=== PATIENT | female | born 1945 | race Caucasian/White ===

== ENCOUNTER 2019-03-18 22:20 | Emergency (ER) | payer OTHER ==
[~2019-03-18] VITALS: Ht 167.6 cm; Wt 71.2 kg
[~2019-03-18 22:20] MED LIST: CRESTOR20 MG PO; INDERAL LA80 MG PO; METFORMIN HCL500 MG PO; POLY119PG PO; SURFAK240 M1 PO; ULTRACET PO
== END 2019-03-19 03:35 | disposition home or self-care (01) ==
LOC: ER 22:20
DX: E11.649 Type 2 diabetes mellitus with hypoglycemia without coma (principal); R42 Dizziness and giddiness; R51 Headache

== ENCOUNTER 2019-03-21 19:53 | Emergency (ER) | payer OTHER ==
[~2019-03-21] VITALS: Ht 167.6 cm; Wt 71.2 kg
== END 2019-03-21 21:51 | disposition home or self-care (01) ==
LOC: ER 19:53
DX: I16.1 Hypertensive emergency (principal); I10 Essential (primary) hypertension

== ENCOUNTER 2019-05-31 09:29 | Outpatient (CLI) | payer OTHER | END 2019-05-31 09:33 | disposition home or self-care (01) | LOC: SONOGRAMA 09:29 | DX: E04.2 Nontoxic multinodular goiter (principal) ==

== ENCOUNTER 2022-01-10 15:55 | Emergency (ER) | payer OTHER ==
[~2022-01-10] VITALS: Ht 167.6 cm; Wt 71.2 kg
[2022-01-10] MEDS ORDERED: LOSARTAN POTASS25 MG PO (16:08)
== END 2022-01-10 21:05 | disposition home or self-care (01) ==
LOC: ER 15:55
DX: S09.90XA Unspecified injury of head, initial encounter (principal); T07.XXXA Unspecified multiple injuries, initial encounter; W18.30XA Fall on same level, unspecified, initial encounter; Y99.9 Unspecified external cause status; Y93.9 Activity, unspecified; Y92.019 Unspecified place in single-family (private) house as the place of occurrence of the external cause

== ENCOUNTER 2024-02-03 05:34 | Day surgery (SDC) | payer OTHER ==
[2024-01-30 14:08] LABS: INR 1.05; PARTIAL THROMBOPLASTIN TIME 27.2 SECONDS (22.0-34.0)
[~2024-02-03 05:34] MED LIST changes: +LOSARTAN POTASS25 MG PO
[2024-02-03] MEDS ORDERED: CHLORHEXIDINE GLUCONATE 120 ML BOTTLE TOP ONE ×2 (12:43→13:30)
[2024-02-03] MEDS ORDERED: VANCOMYCIN HCL 1,000 MG VIAL ONE (12:49)
[2024-02-03] MEDS ORDERED: GENTAMICIN SULFATE 40 MG/ML VIAL ONE (12:49)
[2024-02-03] MEDS ORDERED: GENTAMICIN SULFATE 40 MG/ML VIAL IV ONE (13:30)
[2024-02-03] MEDS ORDERED: VANCOMYCIN HCL 1,000 MG VIAL IV ONE (13:30)
[2024-02-03] MEDS ORDERED: ENALAPRILAT DIHYDRATE 2.5 MG/2 ML VIAL IV ONE (16:53)
== END 2024-02-03 18:15 | disposition home or self-care (01) ==
LOC: CIR.AMB 05:34
PROVIDERS: ATTEND Urology
DX: C67.9 Malignant neoplasm of bladder, unspecified (principal); Z88.6 Allergy status to analgesic agent

== ENCOUNTER 2024-02-06 18:42 | Emergency (ER) | payer OTHER ==
[~2024-02-06] VITALS: Ht 172.7 cm; Wt 78.5 kg
[2024-02-06] MEDS ORDERED: ACETAMINOPHEN 500 MG GEL..CAP PO ONE (20:00)
[2024-02-06 20:15] LABS: HEMATOCRIT 35.2 % (36.0-45.00); HEMOGLOBIN 11.9 g/dL (12.0-15.00); MEAN CORPUSCULAR HEMOGLOBIN 30.7 pg (27.00-32.0); MEAN CORPUSCULAR HGB CONC 33.7 g/dl (32.0-36.0); PLATELET COUNT 203 K/uL (150-450); RED BLOOD COUNT 3.87 M/uL (4.00-6.00); RED CELL DISTRIBUTION WIDTH 13.4 % (11.5-14.5)
[2024-02-06 20:43] LABS: INR 1.03; PARTIAL THROMBOPLASTIN TIME 26.4 SECONDS (22.0-34.0); PROTHROMBIN TIME 10.8 SECONDS (9.0-11.5)
[2024-02-06 20:44] LABS: CALCIUM 9.5 mg/dL (8.5-10.1); CREATININE SERUM 0.88 mg/dL (0.55-1.02); GFR 62.47; POTASSIUM 4.17 mEq/L (3.5-5.1)
[2024-02-06 21:02] LABS: PH,URINE 5.5 (5.0-8.0); URINE APPEARANCE Cloudy; URINE BILIRRUBIN Negative (NEGATIVE); URINE BLOOD Moderate; URINE COLOR Dark Yellow; URINE GLUCOSE Negative (NEGATIVE); URINE LEUKOCYTE Moderate; URINE NITRATE Positive
[2024-02-06 21:05] LABS: URINE BACTERIA 200.3 uL (0.0-1933); URINE EPITHELIAL CELLS 7.2 uL (0.0-38.8); URINE RBC 195.8 uL (0.0-20.8)
[2024-02-06 21:10] LABS: URINE PROTEIN 100 (NEGATIVE)
[2024-02-06] MEDS ORDERED: CEFDINIR300 MG PO (21:56)
[2024-02-06] MEDS ORDERED: PYRIDIUM100 M1 PO (21:56)
[2024-02-06] MEDS ORDERED: CEFTRIAXONE SODIUM 1,000 MG VIAL IV ONE (22:00)
== END 2024-02-06 22:16 ==
LOC: ER 18:43
PROVIDERS: Nurse Practitioner Family
DX: N39.0 Urinary tract infection, site not specified (principal); R30.0 Dysuria; Z20.822 Contact with and (suspected) exposure to COVID-19; I10 Essential (primary) hypertension; E11.9 Type 2 diabetes mellitus without complications; Z79.84 Long term (current) use of oral hypoglycemic drugs; Z88.5 Allergy status to narcotic agent
CPT/HCPCS: 36415; 96365; 99282; J0696

== ENCOUNTER 2024-12-12 10:47 | Outpatient (CLI) | payer OTHER ==
[~2024-12-12 10:47] MED LIST changes: +CEFDINIR300 MG PO; +PYRIDIUM100 M1 PO
[2024-12-12 12:22] LABS: CREATININE SERUM 0.7 mg/dL (0.55-1.02); GFR 81.14
== END 2024-12-12 10:49 | disposition home or self-care (01) ==
LOC: LAB 10:47
PROVIDERS: ATTEND Radiology Diagnostic Radiology
DX: C67.9 Malignant neoplasm of bladder, unspecified (principal)

== ENCOUNTER 2024-12-19 08:45 | Outpatient (CLI) | payer OTHER | END 2024-12-19 08:50 | disposition home or self-care (01) | LOC: TOM 08:45 | PROVIDERS: ATTEND Urology | DX: C67.9 Malignant neoplasm of bladder, unspecified (principal) | CPT/HCPCS: 74178; Q9965 ==